=== PATIENT | female | born 1970 | race African-American/Black ===

== ENCOUNTER 2021-05-18 07:59 | Outpatient (REF) | payer BC, SELFPAY ==
[2021-05-20 22:36] LABS: HPV mRNA E6/E7 rflx Not Detected (Not Detected)
== END 2021-05-18 08:00 | disposition home or self-care (01) ==
LOC: HO.LAB 07:59
PROVIDERS: PCP Internal Medicine; Visit Provider Obstetrics & Gynecology
DX: Z01.419 Encounter for gynecological examination (general) (routine) without abnormal findings (principal); Z11.51 Encounter for screening for human papillomavirus (HPV)
CPT/HCPCS: 87624; 88142

== ENCOUNTER 2023-05-25 07:49 | Outpatient (AMB) | payer BC, SELFPAY ==
--- NOTE | 2023-05-25 07:50 | MHC.OFFVIS ---
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 No complaints. Last Pap/HPV was negative in 06/04 Last Mammogram was done at [facility] in November of 2022 according the patient was negative, no records available Last Colonoscopy was done 2 years ago, the recommendation was to repeat in 10 years [facility] Medical History Brain injury Rheumatoid arthritis Surgical History S/P nasal surgery Family History Paternal Aunt Breast CA Maternal Grandmother Diabetes Mother Dementia Father HTN (hypertension) Social History Household Members: Spouse Household Members Other:: daughter Housing: House Alcohol intake: never Patient Tobacco Use Status: Never used Tobacco service: No Current occupational status: unemployed Sexually active: Yes Sexual orientation: Straight/Heterosexual Gender identity: Female Female Reproductive History Menstrual Age of Menarche: 11 Menopause type: natural Total pregnancies: 4 Number of Living Children: 1 Ab spontaneous: 3 Date of last pap smear: 05/19/21 Review of Systems Const All systems reviewed & are unremarkable except as noted in HPI and below Card Reports as per HPI Resp Reports as per HPI GI Reports as per HPI and Reports no additional complaints Reports as per HPI Physical Exam Vital Signs: Last Vital Signs BP 120/82 05/25/23 07:55 BMI result Body Mass Index 35.2 Const General: cooperative, healthy appearing and comfortable Chest Chest palpation & inspection: normal inspection of the chest and normal palpation of entire chest wall Breast/axilla inspection: normal inspection of the breasts and normal inspection of the axillae Breast/axilla palpation: normal palpation of the breasts, normal palpation of the axillae and no axillary lymphadenopathy Resp Effort & Inspection: normal respiratory effort Auscultation: clear to auscultation bilaterally Percussion: percussion normal Cardio Palpation: normal PMI Rate: regular rate Rhythm: regular rhythm Heart sounds: no murmurs and no rubs Peripheral pulses: Peripheral pulses 2+ throughout GI Inspection: Yes normal to inspection Palpation (GI): Soft to palpation, nontender, no guarding, not rigid and No hepatosplenomegaly present Percussion: Yes normal to percussion Auscultation: normal bowel sounds Rectal Exam - Female: deferred General: Yes bladder normal to palpation External Female Exam: No lesion Speculum Exam - Vagina: normal appearance of the vagina, normal palpation, normal vaginal discharge and not erythematous Speculum Exam - Cervix: normal appearance of the cervix and normal palpation Bimanual exam- vagina & uterus: normal bimanual exam, normal palpation, uterine size normal, bladder normal to palpation, consistency normal and normal palpation Bimanual Exam- Adnexa, other: normal adnexae, no masses and no tenderness Assessment & Plan Assessment & Plan (1) Well woman exam: Code(s): Z01.419 - Encounter for gynecological examination (general) (routine) without abnormal findings Plan: Co testing not indicated this year. Counseled the patient about the recommended dietary allowance of 1200 mg of Calcium & 600 IU of vitamin D. Instructions given the patient to schedule next screening Mammogram in 12/09, the patient is up-to-date with her screening colonoscopy . The patient was instructed to perform monthly self-breast exams and schedule annual exam in a year; all questions answered and the patient verbalized understanding. Coding Level of Care Code Est Pt Prev Care 40-64y(01872) Diagnoses Well woman exam Z01.419
[2023-05-25 07:55] VITALS: BP 120/82; BMI 35.2
== END 2023-05-25 08:15 | disposition home or self-care (01) ==
LOC: HO.HWS 07:49
PROVIDERS: PCP Internal Medicine; Visit Provider Obstetrics & Gynecology
DX: Z01.419 Encounter for gynecological examination (general) (routine) without abnormal findings (principal)
CPT/HCPCS: 99396

== ENCOUNTER → 2023-05-25 07:49 | Outpatient (BNVA) | payer BC, SELFPAY | PROVIDERS: PCP Internal Medicine; Visit Provider Obstetrics & Gynecology ==

== ENCOUNTER 2024-08-01 08:02 | Outpatient (AMB) | payer BC, SELFPAY ==
--- NOTE | 2024-08-01 08:04 | A.OFFVIS_ITS ---
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 Complaining of an episode of postcoital bleeding last week Last Pap/HPV was negative in 06/05 Last Mammogram was done at [facility] in November of 2023 according the patient was negative, no records available Last Colonoscopy was done 3 years ago, the recommendation was to repeat in 10 years [facility] Medical History Rheumatoid arthritis Brain injury Surgical History S/P nasal surgery Family History Paternal Aunt Breast CA Maternal Grandmother Diabetes Mother Dementia Father HTN (hypertension) Social History Household Members: Spouse Household Members Other:: daughter Housing: House Alcohol intake: never Patient Tobacco Use Status: Never used Tobacco service: No Current occupational status: unemployed Sexual orientation: Straight/Heterosexual Gender identity: Female Female Reproductive History Menstrual Age of Menarche: 11 Menopause type: natural Total pregnancies: 4 Full term: 1 Number of Living Children: 1 Ab spontaneous: 3 Date of last pap smear: 05/19/21 Review of Systems Const All systems reviewed & are unremarkable except as noted in HPI and below Card Reports as per HPI Resp Reports as per HPI GI Reports as per HPI and Reports no additional complaints Reports as per HPI Physical Exam Vital Signs: Last Vital Signs BP 120/74 08/01/24 08:08 BMI result Body Mass Index 29.6 Const General: cooperative, healthy appearing and comfortable Chest Chest palpation & inspection: normal inspection of the chest and normal palpation of entire chest wall Breast/axilla inspection: normal inspection of the breasts and normal inspection of the axillae Breast/axilla palpation: normal palpation of the breasts, normal palpation of the axillae and no axillary lymphadenopathy Resp Effort & Inspection: normal respiratory effort Auscultation: clear to auscultation bilaterally Percussion: percussion normal Cardio Palpation: normal PMI Rate: regular rate Rhythm: regular rhythm Heart sounds: no murmurs and no rubs Peripheral pulses: Peripheral pulses 2+ throughout GI Inspection: Yes normal to inspection Palpation (GI): Soft to palpation, nontender, no guarding, not rigid and No hepatosplenomegaly present Percussion: Yes normal to percussion Auscultation: normal bowel sounds Rectal Exam - Female: deferred General: Yes bladder normal to palpation External Female Exam: No lesion Speculum Exam - Vagina: normal appearance of the vagina, normal palpation, normal vaginal discharge and not erythematous Speculum Exam - Cervix: normal appearance of the cervix and normal palpation Bimanual exam- vagina & uterus: normal bimanual exam, normal palpation, uterine size normal, bladder normal to palpation, consistency normal and normal palpation Bimanual Exam- Adnexa, other: normal adnexae, no masses and no tenderness Assessment & Plan Assessment & Plan (1) Well woman exam: Code(s): Z01.419 - Encounter for gynecological examination (general) (routine) without abnormal findings Category: Medical Plan: Co testing not indicated this year. Counseled the patient about the recommended dietary allowance of 1200 mg of Calcium & 600 IU of vitamin D. Instructions given to patient to schedule next screening Mammogram in 12/10. The patient was instructed to perform monthly self-breast exams and schedule annual exam in a year. All questions answered and the patient verbalized understanding. (2) Postcoital bleeding: Code(s): N93.0 - Postcoital and contact bleeding Category: Medical Plan: Discussed with the patient the differential diagnosis of post coital bleeding with normal pelvic exam including but not limited to, endometrial/endocervical pathology including hyperplasia, cancer, polyps and other causes; co testing done, GC/CT done recommended ultrasound. Instructed the patient to schedule an ultrasound with a follow-up appointment in 2 weeks possible EMB/ECC versus hysteroscopy D&C possible polypectomy/myomectomy depending on the results. All questions answered, the patient verbalized understanding and agreed with the plan. This note was generated with a voice recognition program. Some errors may have been overlooked during the review of this note. Sometimes these errors may affect the content or meaning of a given sentence. Orders: Orders US pelvic and transvaginal Today N93.0 - Postcoital and contact bleeding Coding Level of Care Code Est Pt Level 3 (25159) Est Pt Prev Care 40-64y(13199) Diagnoses Well woman exam Z01.419 Postcoital bleeding N93.0
[2024-08-01 08:08] VITALS: BP 120/74; BMI 29.6
== END 2024-08-01 08:52 | disposition home or self-care (01) ==
PROVIDERS: PCP Internal Medicine; Visit Provider Obstetrics & Gynecology
DX: Z01.419 Encounter for gynecological examination (general) (routine) without abnormal findings (principal); N93.0 Postcoital and contact bleeding
CPT/HCPCS: 99213; 99396

== ENCOUNTER 2024-08-09 16:05 | Outpatient (REF) | payer BC, SELFPAY ==
--- NOTE | ~2024-08-09 | US_ITS ---
EXAMINATION: US PELVIS CLINICAL INFORMATION: Post coital and contact bleeding. COMPARISON: 10/05/2016. 06/06/2013 TECHNIQUE: Ultrasound of the pelvis is performed using both transabdominal and transvaginal transducers along with Doppler. Transvaginal imaging is performed due to inadequate visualization transabdominally. FINDINGS: Uterus: The uterus is anteverted and measures 5.8 x 2.8 x 4.3 cm. The cervix has a normal appearance. The double wall endometrial thickness is 0.2 mm. Trace fluid in the endometrial canal is nonspecific. The uterus is smooth in contour. There are numerous small fibroids present: In the right fundus, a 1.5 x 1.9 x 1.9 cm fibroid is present, smaller, previously measuring 2.6 x 2.1 x 2.1 cm. In the dorsal fundus, a 0.5 x 0.4 x 0.5 cm fibroid is unchanged. In the distal fundus, a smaller subserosal fibroid is present measuring 1.1 x 1.2 x 1.0 cm, previously measuring 1.5 x 1.6 x 1.4 cm. In the far left fundus, there is a 1.0 x 0.9 x 1.2 cm smaller fibroid, previously measuring 1.2 x 1.1 x 1.3 cm. Also in the far left fundus, there is a second 1.1 x 0.8 x 1.2 cm slightly smaller fibroid, previously measuring 1.2 x 1.2 x 1.4 cm. Adnexa: Both ovaries are visualized. There is normal color flow to the adnexa. There is no ovarian torsion. There is no pelvic ascites or fluid collection. There are no adnexal masses. Right ovary measures 1.6 x 2.4 x 1.7 cm. Volume = 3.5 mL. It is sonographically normal. Left ovary measures 1.1 x 1.3 x 1.0 cm. Volume = 0.7 mL. It is sonographically normal. US/US pelvic and transvaginal IMPRESSION: 1. Normal endometrial thickness. Tiny amount of fluid in the endometrial canal again noted, nonspecific. 2. There are 5 discrete fibroids in the uterus, which a dorsal fundal is unchanged, and the remainder are slightly smaller than previously. There are no new fibroids. 3. Normal ovaries bilaterally. No adnexal masses or free fluid. Electronically signed by: Trevor Issa MD 09/24/2024 11:57 AM [facility] [place]
== END 2024-08-09 16:06 | disposition home or self-care (01) ==
LOC: HO.US 16:05
PROVIDERS: PCP Internal Medicine; Visit Provider Obstetrics & Gynecology
DX: N93.0 Postcoital and contact bleeding (principal)
CPT/HCPCS: 76830; 76856

== ENCOUNTER → 2024-08-09 16:07 | Outpatient (BNV) | payer BC, SELFPAY | PROVIDERS: PCP Internal Medicine; Visit Provider Radiology Diagnostic Radiology | DX: D25.2 Subserosal leiomyoma of uterus (principal) | CPT/HCPCS: 76856 ==

== ENCOUNTER 2024-09-24 07:52 | Outpatient (AMB) | payer BC, SELFPAY ==
[2024-09-24 08:04] VITALS: BP 122/68; BMI 29.6
--- NOTE | 2024-09-24 08:04 | A.OFFVIS_ITS ---
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 The patient had 2 episodes of postcoital bleeding. GC/CT was negative Co testing negative Pelvic ultrasound done on 08/09/2024, report not available yet [facility]PLACED BY [facility] Medical History Rheumatoid arthritis Brain injury Surgical History S/P nasal surgery Family History Paternal Aunt Breast CA Maternal Grandmother Diabetes Mother Dementia Father HTN (hypertension) Social History Household Members: Spouse Household Members Other:: daughter Housing: House Alcohol intake: never Patient Tobacco Use Status: Never used Tobacco service: No Current occupational status: unemployed Sexual orientation: Straight/Heterosexual Gender identity: Female Female Reproductive History Menstrual Age of Menarche: 11 Date of last menstrual period: 08/13/20 Total pregnancies: 2 Full term: 2 Review of Systems Const All systems reviewed & are unremarkable except as noted in HPI and below Reports as per HPI and Reports no additional complaints Card Reports as per HPI and Reports no additional complaints Resp Reports as per HPI and Reports no additional complaints GI Reports no additional complaints Reports no additional complaints Physical Exam Vital Signs: Last Vital Signs BP 122/68 09/24/24 08:04 BMI result Body Mass Index 29.6 Const General: cooperative, healthy appearing and comfortable Resp Effort & Inspection: normal respiratory effort Auscultation: clear to auscultation bilaterally Percussion: percussion normal Cardio Palpation: normal PMI Rate: regular rate Rhythm: regular rhythm Heart sounds: no murmurs and no rubs Peripheral pulses: Peripheral pulses 2+ throughout GI Inspection: Yes normal to inspection Palpation (GI): Soft to palpation, nontender, no guarding, not rigid and No h epatosplenomegaly present Percussion: Yes normal to percussion Auscultation: normal bowel sounds Rectal Exam - Female: deferred Assessment & Plan Assessment & Plan (1) Postcoital bleeding: Code(s): N93.0 - Postcoital and contact bleeding Category: Medical Plan: Since the patient had more than 1 episode of postcoital bleeding, recommended to the patient that the next step is an endometrial /endocervix sampling via hysteroscopy D&C/ECC possible polypectomy versus office endometrial /endocervical biopsy to r/o endometrial /endocervical pathology including hyperplasia or cancer. All the pros and cons risks and benefits of each approach were discussed with the patient, endometrial /endocervical biopsy being less invasive, office procedure with less sensitivity and inability diagnose a polyp and removal versus hysteroscopy/D and C/ECC done under anesthesia more invasive more sensitive to endometrial /endocervix cancer and possibility of diagnosing and endometrial /endocervical polyp with the possibility of polypectomy. All questions were answered pt verbalized understanding and decided to proceed with hysteroscopy D&C possible polypectomy with ECC . Discussed with the patient the procedure , all benefits and risks including but not limited to inability to complete the procedure , insufficient endometrial tissue for a complete evaluation of the endometrial cavity , bleeding, infection, possible need for blood transfusion with all its risk ( HIV,syphilis, Hepatitis, anaphylaxis shock, others..), injury to bladder, rectum, possible need for laparoscopy/laparotomy or hysterectomy. The patient verbalized understanding and signed the consent. Instructions given the patient to stay NPO after midnight the day prior to the procedure and to take only the specific medication (s) discussed the morning of the surgical procedure and to schedule a 2 week postoperative appointment Message sent to the radiology department to expedite the reading for the pelvic ultrasound. Coding Level of Care Code Est Pt Level 3 (17325) Diagnoses Postcoital bleeding N93.0
== END 2024-09-24 08:22 | disposition home or self-care (01) ==
PROVIDERS: PCP Internal Medicine; Visit Provider Obstetrics & Gynecology
DX: N93.0 Postcoital and contact bleeding (principal)
CPT/HCPCS: 99213

== ENCOUNTER → 2024-09-24 07:52 | Outpatient (BNVA) | payer BC, SELFPAY | PROVIDERS: PCP Internal Medicine; Visit Provider Obstetrics & Gynecology ==

== ENCOUNTER 2024-09-27 08:26 | Day surgery (SDC) | payer BC, SELFPAY ==
--- NOTE | 2024-09-25 11:48 | HO.ANESPROP2 ---
Documented by User: Tyra Rai NP 09/25/24 11:48 HPI - Anesthesia Eval Consult details Narrative: 54yo F for D&C Hysteroscopy,possible myomectomy,possible polypectomy,endocervical Curettage Methotrexate for RA PMFSH Active Problems Active Problems: All Active Problems Postcoital bleeding (Acute) Well woman exam (Acute) Past Medical History Medical History Migraine GERD (gastroesophageal reflux disease) Rheumatoid arthritis Brain injury Family History Family History Paternal Aunt Breast CA Maternal Grandmother Diabetes Mother Dementia Father HTN (hypertension) Surgical History Surgical History Hx of partial thyroidectomy S/P nasal surgery Social History Social History Household Members: Spouse Household Members Other:: daughter Housing: House Alcohol intake: never Patient Tobacco Use Status: Never used Tobacco Use of substances other than those prescribed or required for medical reasons: No Are you DNR?: No Advance Directives: No Advance Directives Information Provided: Yes Recently lost weight without trying: No service: No Current occupational status: unemployed Sexual orientation: Straight/Heterosexual Gender identity: Female Meds Allergies Allergy/AdvReac Type Severity Reaction Status Date / Time Beef Containing Products Allergy Unknown CRAMPS AND Verified 09/27/24 09:03 [BEEF CONTAINING PRODUCTS] VOMITING Sulfa (Sulfonamide Allergy Unknown VOMITING Verified 09/27/24 09:03 Antibiotics) AND [SULFA (SULFONAMIDE BLISTERS, ANTIBIOTICS)] vomiting, painful sores Home Medications ?Medication ?Instructions ?Recorded ?Confirmed ?Last Taken ?Type methotrexate 2.5 mg/mL oral PO 05/18/21 Unknown History solution multivitamin 1 tab PO DAILY 05/18/21 Unknown History tofacitinib 11 mg tablet,extended 11 mg PO DAILY 05/23/22 Unknown History release 24 hr (Xeljanz XR) amitriptyline 10 mg tablet 10 mg PO BEDTIME 05/25/23 Unknown History folic acid 1 mg tablet 1 mg PO DAILY 05/25/23 Unknown History magnesium oxide 400 mg (241.3 mg 400 mg PO DAILY 05/25/23 Unknown History magnesium) tablet sumatriptan succinate 100 mg tablet 100 mg PO BID PRN Migraine Headache 05/25/23 Unknown History Vitamin D (with calcium) PO DAILY 09/27/24 Unknown History omeprazole 40 mg capsule,delayed 40 mg PO DAILY PRN Heartburn 09/27/24 09/27/24 Unknown History release Assessment and Plan Assessment Anesthesia Assessment: Chart Reviewed Documented by User: Julia Mistry MD 09/27/24 09:52 [facility] Past Medical History Medical History Migraine GERD (gastroesophageal reflux disease) Rheumatoid arthritis Brain injury Family History Family History Paternal Aunt Breast CA Maternal Grandmother Diabetes Mother Dementia Father HTN (hypertension) Family history of problems with anesthesia: No Surgical History Surgical History Hx of partial thyroidectomy S/P nasal surgery History of Problems with Anesthesia: No Social History Social History Household Members: Spouse Household Members Other:: daughter Housing: House Alcohol intake: never Patient Tobacco Use Status: Never used Tobacco Use of substances other than those prescribed or required for medical reasons: No Are you DNR?: No Advance Directives: No Advance Directives Information Provided: Yes Recently lost weight without trying: No service: No Current occupational status: unemployed Sexual orientation: Straight/Heterosexual Gender identity: Female Meds Allergies Allergy/AdvReac Type Severity Reaction Status Date / Time Beef Containing Products Allergy Unknown CRAMPS AND Verified 09/27/24 09:03 [BEEF CONTAINING PRODUCTS] VOMITING Sulfa (Sulfonamide Allergy Unknown VOMITING Verified 09/27/24 09:03 Antibiotics) AND [SULFA (SULFONAMIDE BLISTERS, ANTIBIOTICS)] vomiting, painful sores Home Medications ?Medication ?Instructions ?Recorded ?Confirmed ?Last Taken ?Type methotrexate 2.5 mg/mL oral PO 05/18/21 Unknown History solution multivitamin 1 tab PO DAILY 05/18/21 Unknown History tofacitinib 11 mg tablet,extended 11 mg PO DAILY 05/23/22 Unknown History release 24 hr (Xeljanz XR) amitriptyline 10 mg tablet 10 mg PO BEDTIME 05/25/23 Unknown History folic acid 1 mg tablet 1 mg PO DAILY 05/25/23 Unknown History magnesium oxide 400 mg (241.3 mg 400 mg PO DAILY 05/25/23 Unknown History magnesium) tablet sumatriptan succinate 100 mg tablet 100 mg PO BID PRN Migraine Headache 05/25/23 Unknown History Vitamin D (with calcium) PO DAILY 09/27/24 Unknown History omeprazole 40 mg capsule,delayed 40 mg PO DAILY PRN Heartburn 09/27/24 09/27/24 Unknown History release Exam Airway Mallampati Class: II TM Dist: >3cm Neck ROM: Full Heart: rrr Lungs: cta Assessment and Plan Assessment Anesthesia Assessment: Anesthesia Plan Discussed Final Anesthetic Review Family History of Problems with Anesthesia: No History of Problems with Anesthesia: No NPO: Yes ASA Class: III Final Preanesthetic Review: No Changes in Pt Med Stat, Meds/Allgs Chart Reviewed, Consent Obtained/Reviewed and Anes Risks/Benef Reviewed Patient Risk: Intermediate Procedure Risk: Low Anesthetic Plan Anesthetic Plan: GA Disposition: Standard PACU
[2024-09-27] VITALS (9 sets, daily range): BP systolic 111–129; BP diastolic 72–81; PULSE 54–78; RESP 15–20; TEMP 36.1–36.4; O2SAT 96–100; BMI 33.2
[2024-09-27 08:49] LABS: UPreg QC Valid YES; Urine Pregnancy NEGATIVE (NEGATIVE)
--- NOTE | 2024-09-27 08:54 | MHC.SHP ---
Pre-Procedural Eval Section A - 24 Hr Update-Section A only Date of Service: 09/27/24 The patient is an INPATIENT: No Changes since office visit: No Cold of Flu in the past 2 weeks, No New Medical Problems, No Changes in Medication and No Patient answered all questions The patient has been examined within 24 hours of the surgical procedure. The History & Physical has been completed within 30 days and I have reviewed it.: Yes Section B - Complete if H&P > 30 days Chief Complaint: Postcoital and contact bleeding Allergies: Allergies Allergy/AdvReac Type Severity Reaction Status Date / Time Beef Containing Products Allergy Unknown CRAMPS AND Unverified 09/24/24 08:10 [BEEF CONTAINING PRODUCTS] VOMITING Sulfa (Sulfonamide Allergy Unknown VOMITING Unverified 09/24/24 08:10 Antibiotics) AND [SULFA (SULFONAMIDE BLISTERS, ANTIBIOTICS)] vomiting, painful sores Plan Diagnosis/Plan: Unchanged I have reviewed the history and physical and performed a pertinent physical examination on my patient. No changes have occurred unless specified. Time Spent With Patient Time: Total time managing care of this patient today ____ minutes.
[2024-09-27] MEDS: Lactated Ringers 1,000 ML 100 ML IVCONT (09:06)
--- NOTE | 2024-09-27 10:29 | PM.OP ---
Brief Operative Note Date of Service: 09/27/24 Pre-op diagnosis: Postcoital bleeding Post-op diagnosis: same (Endometrial polyp) Procedure: Hysteroscopy D&C, Polypectomy, ECC Surgeon: Thaddeus Jeronimo MD Anesthesia: GLMA Was an Manager Fixed Income used for this Procedure?: No Estimated blood loss (mL): 0 Pathology: other (Endometrial Scrapping, endometrial Polyp, endocervical curettage) Condition: stable Disposition: PACU
--- NOTE | 2024-09-27 10:30 | P.OP_ITS ---
Operative Note Operative Note Date of Service: 09/27/24 Narrative: Preop Diagnosis: Postcoital bleeding Operation: Diagnostic Hysteroscopy, Dilataion & Curettage and polypectomy, endocervical curettage Post Op Diagnosis: Endometrial Polyp QBL: Minimal Anesthesia: GLMA Surgeon: Thaddeus Jeronimo MD Building Cleaning Supervisor: None Complication: None Pathology: Endometrial Scrapings, Endometrial polyp, endocervical curettage Procedure: The patient was put in the dorsal lithotomy position, scrubbed, and draped in the usual manner. A sterile speculum was inserted in the patient's vagina. The anterior lip of the cervix was grasped with a single tooth tenaculum. The cervix was dilated up to 5 mm, then the scope was inserted in the patient's uterus. Inspection revealed endometrial polyp. The Myosure Reach device was used; it was introduced through the operative channel and polypectomy done with no complications. The scope was then taken out from the uterine cavity, sharp curettings was carried on with minimal to moderate amount of tissues retrieved. Endocervical curettage followed. At the end of the procedure, all instruments were taken out of the patient uterine and vaginal cavity. The single tooth tenaculum was removed and homeostasis was assured using pressure,. The patient tolerated the procedure well and was transferred to the PACU in a stable condition.
[2024-09-27] MEDS: fentaNYL citrate/PF 100 MCG/2 ML VIAL 25 MCG IVPUSH (10:59)
== END 2024-09-27 11:50 | disposition home or self-care (01) ==
PROVIDERS: PCP Internal Medicine; Visit Provider Obstetrics & Gynecology
PROC: 0UDB8ZZ Extraction of Endometrium, Via Natural or Artificial Opening Endoscopic (ICD-10-PCS; CPT 58558; principal; 2024-09-27 10:30)
DX: N93.0 Postcoital and contact bleeding (principal); N84.0 Polyp of corpus uteri; M06.9 Rheumatoid arthritis, unspecified; Z87.820 Personal history of traumatic brain injury; K21.9 Gastro-esophageal reflux disease without esophagitis; G43.909 Migraine, unspecified, not intractable, without status migrainosus; Z79.899 Other long term (current) drug therapy; Z88.2 Allergy status to sulfonamides; Z98.890 Other specified postprocedural states; Z56.0 Unemployment, unspecified
CPT/HCPCS: 58558; 81025; 88305; J1885; J2003; J2405; J2704; J3010

== ENCOUNTER → 2024-09-27 08:26 | Outpatient (BNV) | payer BC, SELFPAY | PROVIDERS: PCP Internal Medicine; Visit Provider Obstetrics & Gynecology | DX: N84.0 Polyp of corpus uteri (principal) | CPT/HCPCS: 58558 ==

== ENCOUNTER 2024-10-23 14:02 | Outpatient (AMB) | payer BC, SELFPAY ==
--- NOTE | 2024-10-23 14:09 | MHC.OFFVIS ---
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 The pathology showed the following: A. Endometrial polyp, resection: -Fragments of benign endometrial polyp and benign endometrium with atrophic glands and cyst formation; no atypia or carcinoma. -Fragments of benign smooth muscle (submucosal leiomyoma versus myometrium). B. Endometrium, curettage: Superficial benign atrophic endometrium, benign endocervical glandular epithelium, and benign squamous epithelium; no atypia or carcinoma. C. Endocervix, curettage: Scant benign endocervical glandular epithelium and benign squamous epithelium; no atypia or carcinoma Pelvic ultrasound done in 08/08 showed the following: IMPRESSION: 1. Normal endometrial thickness. Tiny amount of fluid in the endometrial canal again noted, nonspecific. 2. There are 5 discrete fibroids in the uterus, which a dorsal fundal is unchanged, and the remainder are slightly smaller than previously. There are no new fibroids. 3. Normal ovaries bilaterally. No adnexal masses or free fluid. GC/CT was negative Last co testing was done in 08/05 was negative PFSH Medical History Migraine GERD (gastroesophageal reflux disease) Rheumatoid arthritis Brain injury Surgical History Hx of partial thyroidectomy S/P nasal surgery Family History Paternal Aunt Breast CA Maternal Grandmother Diabetes Mother Dementia Father HTN (hypertension) Social History Household Members: Spouse Household Members Other:: daughter Housing: House Alcohol intake: never Patient Tobacco Use Status: Never used Tobacco service: No Current occupational status: unemployed Sexual orientation: Straight/Heterosexual Gender identity: Female Female Reproductive History Menstrual Age of Menarche: 11 Review of Systems Const All systems reviewed & are unremarkable except as noted in HPI and below Reports as per HPI and Reports no additional complaints GI Reports no additional complaints Reports no additional complaints Assessment & Plan Assessment & Plan (1) Postcoital bleeding: Code(s): N93.0 - Postcoital and contact bleeding Category: Medical Plan: Discussed with the patient the results of the intraoperative finding endometrial polyp, status post polypectomy with the results of the pathology. GC/CT negative and last co testing in 2020 was negative Instructions given to patient to call in case symptoms recur. All questions answered, the patient verbalized understanding (2) Uterine myoma: Code(s): D25.9 - Leiomyoma of uterus, unspecified Category: Medical Plan: Discussed with the patient the findings on pelvic ultrasound & the risk of myosarcoma; discussed with the patient the options of treatment including expectant management versus hysterectomy; the pros and cons, risks benefits of each approach were discussed with the patient including the fact that in cases of myosarcoma, surgical treatment can lead to early diagnosis and positively affects the prognosis; after further discussion, the patient decided to proceed with expectant management. Will repeat pelvic ultrasound periodically. Instructions given to patient to call in case any of the following occurs: pressure symptoms, abnormal uterine bleeding, pelvic pain; and to schedule a 12 months pelvic ultrasound (order placed) and a follow-up appointment . All questions answered, the patient verbalized understanding and agreed with the plan . Orders: Orders US pelvic and transvaginal 1 Year D25.9 - Leiomyoma of uterus, unspecified Coding Level of Care Code Est Pt Level 3 (68358) Diagnoses Postcoital bleeding N93.0 Uterine myoma D25.9
== END 2024-10-23 14:44 | disposition home or self-care (01) ==
PROVIDERS: PCP Internal Medicine; Visit Provider Obstetrics & Gynecology
DX: N93.0 Postcoital and contact bleeding (principal); D25.9 Leiomyoma of uterus, unspecified
CPT/HCPCS: 99213